=== PATIENT | female | born 1950 | race Two or more races ===

== ENCOUNTER 2023-03-20 20:30 | Emergency (ER) | payer MEDICARE, SELFPAY ==
[2023-03-20 20:44] VITALS: BP 174/68; PULSE 96; RESP 18; TEMP 39.1; O2SAT 98; BMI 26.3
[2023-03-20] MEDS: ACETAMINOPHEN 500 MG TABLET PO (20:58)
[2023-03-20] MEDS: IBUPROFEN 600 MG TABLET PO (20:58)
[2023-03-20 21:18] LABS: Influenza Virus A Antigen Negative; Influenza Virus B Antigen Negative; Internal Control Within Normal Limits; SARS-CoV-2 Ag NEGATIVE (NEGATIVE)
--- NOTE | 2023-03-20 22:18 | XR_ITS ---
[address] [address] Patient Name: DRAKE BLANK MRN: [id number] date: 1950 Sex: F Assigned Patient Location: ER Current Patient Location: ED.MAIN Accession/Order Number: [id number] Exam Date: 03/20/2023 22:30 Report Date: 03/20/2023 22:51 At the request of: ELSY ANSARI Procedure: XR chest 1V EXAMINATION: CHEST RADIOGRAPH (PORTABLE SINGLE VIEW AP) Exam Date/Time: 03/20/2023 10:30 PM EDT Clinical History: SOB Comparison: None available RESULT: Lines, tubes, and devices: None. Lungs and pleura: No focal consolidation. No pneumothorax. No pleural effusion. Cardiomediastinal silhouette: Stable cardiomediastinal silhouette. Other: No acute osseous process. XR/XR chest 1V IMPRESSION: No acute cardiopulmonary abnormality. Electronically authenticated by: JOSE CARTER Date: 03/20/2023 22:51
--- NOTE | 2023-03-20 22:20 | ED.FEVER1 ---
HPI - Fever General Chief Complaint: Fever Stated Complaint: General Weakness and Headache Time Seen by Provider: 03/20/23 20:43 Source: patient Mode of arrival: walk-in History of Present Illness HPI Narrative: This 72-year-old female presents for evaluation of an intermittent fever since last . The patient states she was getting out of the shower last and had an episode of shaking chills. She took some Tylenol at that time and went to bed. She states the fever went away and she felt fine on Saturday and Saturday but then on Saturday she started developing a fever again. She states she has a generalized headache. She has no neck pain or stiffness. She has no skin rash. She has no upper respiratory symptoms but did have a mild sore throat when her symptoms started. She had some mild vomiting and has some mild epigastric discomfort. She has had her gallbladder removed. She denies any abdominal pain or flank pain. She denies any urinary symptoms. She denies any sick contacts or travel outside the country. Related Data Allergies Allergy/AdvReac Type Severity Reaction Status Date / Time No Known Drug Allergies Allergy Verified 03/20/23 20:44 Review of Systems ROS Status of ROS 10 or more systems reviewed and unremarkable except as noted in history and below Exam Narrative Exam Narrative: Nurses note and vital signs reviewed; Patient is febrile with a normal pulse, blood pressure is elevated at 174/68, she is not hypoxic with pulse ox of 98 percent on room air General: Non toxic, well-appearing female resting currently on the stretcher, no respiratory distress, she is alert and conversant Skin: Warm, dry, no pallor noted. There is no rash noted. Head: Normocephalic, atraumatic Eye: Normal conjunctiva, no drainage, EOMI. PERRL Ears, Nose, Mouth, and Throat: oral mucosa is dry, posterior pharynx is mildly erythematous, no exudate noted, No swelling of the tongue, uvula or pharyngeal soft tissues Neck: Supple, no meningeal signs Cardiovascular: Regular Rate and Rhythm S1S2, no murmurs, rubs or gallops appreciated, pulses are brisk and equal bilaterally Respiratory: Patient is in no distress, no accessory muscle use, lungs are clear to auscultation, no wheezing, rales or rhonchi Back: non-tender, no CVA tenderness bilaterally to percussion. GI: Normal bowel sounds, no tenderness to palpation, no masses appreciated. No rebound, guarding, or rigidity noted. Musculoskeletal: The patient has no evidence of calf tenderness, no pitting edema, symmetrical pulses noted bilaterally Neurological: A&O x4, normal speech Psychiatric: Cooperative Constitutional Vital Signs, click to edit/add: Last Vital Signs Temp 98.6 F 03/20/23 23:20 Pulse 96 H 03/20/23 20:44 Resp 18 03/20/23 20:44 BP 174/68 H 03/20/23 20:44 Pulse Ox 98 03/20/23 20:44 O2 Del Method Room Air 03/20/23 20:44 Course Vital Signs Vital signs: Vital Signs Temperature 102.4 F H 03/20/23 20:44 Pulse Rate 96 H 03/20/23 20:44 Respiratory Rate 18 03/20/23 20:44 Blood Pressure 174/68 H 03/20/23 20:44 Pulse Oximetry 98 03/20/23 20:44 Oxygen Delivery Method Room Air 03/20/23 20:44 Temperature 98.6 F 03/20/23 23:20 Pulse Rate 96 H 03/20/23 20:44 Respiratory Rate 18 03/20/23 20:44 Blood Pressure 174/68 H 03/20/23 20:44 Pulse Oximetry 98 03/20/23 20:44 Oxygen Delivery Method Room Air 03/20/23 20:44 MDM - Fever MDM Narrative Medical decision making narrative: This 72-year-old female, presents for evaluation of a fever and chills that started last . It has been waxing and waning but returned today. Upon arrival temperature was 102. She denies any chest pain or shortness of breath. She did have a mild sore throat earlier in the week. Her mucous membranes were dry. Vital signs were otherwise stable. Lungs are clear, abdomen is soft. She did have some vomiting earlier in the week. An IV was placed and she was medicated with Tylenol and ibuprofen as well as Zofran. Her fever has broken. She is feeling better. She did have some degree of headache upon arrival. She has no neck pain or stiffness, no skin rash, no signs concerning for meningitis. She has a mild elevation in her white count at 13.2. Electrolytes are otherwise normal. She is negative for cough at 19 and influenza. Lactic acid is normal. 2 sets of blood cultures are pending at this time. Her urine is positive for moderate leukocyte esterase and 10-20 white blood cells per high-power field. She was given a dose of IV Rocephin emergency department and will be discharged home with a prescription for Cipro to use for the next 7 days. She'll be referred to outpatient family medicine as her family physician recently retired. Lab Data Attestation: I reviewed the patient's lab results. (White count is elevated at 13.2, there is mild elevation of alkaline phosphatase, urine is positive for infection, COVID and influenza are negative. Lactic acid is normal ) Labs: Lab Results 03/20/23 03/20/23 03/20/23 Range/Units 20:52 22:35 22:48 WBC 13.2 H (4.0-11.0) 10^3/uL RBC 4.27 (4.20-5.40) 10^6/uL Hgb 13.2 (12.0-16.0) g/dL Hct 39.6 (36.0-48.0) % MCV 92.7 (81.0-99.0) fL MCH 30.9 (26.7-34.0) pg MCHC 33.3 (29.9-35.2) g/dL RDW 12.6 (11.0-15.0) % Plt Count 387 (150-450) 10^3/uL MPV 9.0 L (9.5-13.5) fL Neut % (Auto) 89.4 H (43.0-75.0) % Lymph % (Auto) 6.1 L (20.5-60.0) % [place] % (Auto) 3.9 (1.7-12.0) % Eos % (Auto) 0.0 L (0.9-7.0) % Baso % (Auto) 0.2 (0.2-2.0) % Neut # (Auto) 11.8 H (1.4-6.5) 10^3/uL Lymph # (Auto) 0.8 L (1.2-3.8) 10^3/uL [place] # (Auto) 0.5 (0.3-0.8) 10^3/uL Eos # (Auto) 0.0 (0.0-0.7) 10^3/uL Baso # (Auto) 0.0 (0.0-0.1) 10^3/uL Abs Immat Gran (auto) 0.05 H (0.00-0.03) 10^3/uL Imm/Tot Granulo (auto) 0.4 (0.0-0.5) % Sodium 138 (136-145) mmol/L Potassium 3.4 L (3.5-5.1) mmol/L Chloride 101 (98-107) mmol/L Carbon Dioxide 27.5 (21.0-32.0) mmol/L Anion Gap 12.9 BUN 8.0 (7.0-18.0) mg/dL Creatinine 0.74 (0.55-1.02) mg/dL Est GFR ( Amer) >60 (>=60) Est GFR (Non-Af Amer) >60 (>=60) BUN/Creatinine Ratio 10.8 Glucose 137 H (74-106) mg/dL Lactate 1.2 (0.4-2.0) mmol/L Calcium 8.6 (8.5-10.1) mg/dL Total Bilirubin 1.0 (0.2-1.0) mg/dL AST 22 (15-37) U/L ALT 42 (14-59) U/L Alkaline Phosphatase 122 H (46-116) U/L Total Protein 8.1 (6.4-8.2) g/dL Albumin 3.5 (3.4-5.0) g/dL Globulin 4.6 g/dL Albumin/Globulin Ratio 0.8 Urine Color Lt. yellow (YELLOW) Urine Clarity Clear (CLEAR) Urine pH 6.5 (5.0-9.0) Ur Specific [place] 1.015 (1.005-1.025) Urine Protein Negative (NEG/TRACE) mg/dL Urine Glucose (UA) Negative (NEGATIVE) mg/dL Urine Ketones 15 A (NEGATIVE) mg/dL Urine Occult Blood Moderate A (NEGATIVE) Urine Nitrite Negative (NEGATIVE) Urine Bilirubin Negative (NEGATIVE) Urine Urobilinogen 0.2 (0.2-1.0) EU/dL Ur Leukocyte Esterase Large A (NEGATIVE) Urine RBC 2-5 A (0-2) #/HPF Urine WBC 10-20 A (NONE SEEN) #/HPF Ur Squamous Epith Cells Few A (NONE/RARE) #/LPF Urine Crystals None seen (None Seen) #/HPF Urine Bacteria Moderate A (NONE SEEN) #/HPF Urine Casts None seen (NONE SEEN) #/LPF Urine Mucus Trace A (NONE SEEN) Ur Oval Fat Bodies Seen Ur Culture Indicated? Yes SARS-CoV-2 (PCR) Negative (NEGATIVE) Influenza Type A Ag Negative Influenza Type B Ag Negative Discharge Plan Discharge Chief Complaint: Fever Clinical Impression: Urinary tract infection Patient Disposition: Home, Self-Care Time of Disposition Decision: 23:51 Condition: Good Instructions: Acute Urinary Retention in Women (ED) Stand Alone Forms: Portal Instructions Referrals: Physician,Non-Staff, MD [Primary Care Provider] - 1 week
[2023-03-20 22:59] LABS: Basophils Percent Auto 0.2 % (0.2-2.0); Hematocrit 39.6 % (36.0-48.0); Hemoglobin 13.2 g/dL (12.0-16.0); Immature Granulocytes Abs Auto 0.05 10^3/uL (0.00-0.03); Immature Granulocytes Pct Auto 0.4 % (0.0-0.5); Lymphocytes Absolute Auto 0.8 10^3/uL (1.2-3.8); Lymphocytes Percent Auto 6.1 % (20.5-60.0); Mean Corpuscular HGB Conc 33.3 g/dL (29.9-35.2); Mean Corpuscular Hemoglobin 30.9 pg (26.7-34.0); Mean Corpuscular Volume 92.7 fL (81.0-99.0); Monocytes Absolute Auto 0.5 10^3/uL (0.3-0.8); Monocytes Percent Auto 3.9 % (1.7-12.0); Neutrophils Absolute Auto 11.8 10^3/uL (1.4-6.5); Neutrophils Percent Auto 89.4 % (43.0-75.0); Platelet Count 387 10^3/uL (150-450); Red Blood Count 4.27 10^6/uL (4.20-5.40); Red Cell Distribution Width 12.6 % (11.0-15.0); White Blood Count 13.2 10^3/uL (4.0-11.0)
[2023-03-20] MEDS: 0.9 % SODIUM CHLORIDE 1,000 ML 1000 ML IV (23:01)
[2023-03-20 23:02] LABS: Bilirubin Urine NEGATIVE (NEGATIVE); Blood Urine MODERATE (NEGATIVE); Clarity Urine CLEAR (CLEAR); Color Urine LT. YELLOW (YELLOW); Glucose Urine UA NEGATIVE (NEGATIVE); Ketones Urine 15 mg/dL (NEGATIVE); Leukocyte Esterase Urine LARGE (NEGATIVE); Nitrite Urine NEGATIVE (NEGATIVE); Protein Urine NEGATIVE (NEG/TRACE); Specific Gravity Urine 1.015 (1.005-1.025); Urobilinogen Urine 0.2 EU/dL (0.2-1.0); pH Urine 6.5 (5.0-9.0)
[2023-03-20] MEDS: ONDANSETRON PF 4 MG/2 ML VIAL IV (23:02)
[2023-03-20] MEDS: ACETAMINOPHEN 325 MG TABLET 650 MG PO (23:02)
[2023-03-20 23:14] LABS: Alanine Aminotransferase 42 U/L (14-59); Albumin Globulin Ratio 0.8; Albumin Level 3.5 g/dL (3.4-5.0); Alkaline Phosphatase 122 U/L (46-116); Anion Gap 12.9; Aspartate Amino Transferase 22 U/L (15-37); BUN Creatinine Ratio 10.8; Calcium 8.6 mg/dL (8.5-10.1); Carbon Dioxide 27.5 mmol/L (21.0-32.0); Chloride 101 mmol/L (98-107); Estimated GFR (African America >60 (>=60); Estimated GFR (Non-African Ame >60 (>=60); Globulin 4.6 g/dL; Glucose 137 mg/dL (74-106); Potassium 3.4 mmol/L (3.5-5.1); Sodium 138 mmol/L (136-145); Total Protein 8.1 g/dL (6.4-8.2)
[2023-03-20 23:17] LABS: Lactate/Lactic Acid 1.2 mmol/L (0.4-2.0)
[2023-03-20 23:18] LABS: Bacteria Urine MODERATE #/HPF (NONE SEEN); Cast Seen? NONE SEEN #/LPF (NONE SEEN); Crystals Seen? None Seen #/HPF (None Seen); Mucus Urine TRACE (NONE SEEN); Squamous Epithelial Cell Urine FEW #/LPF (NONE/RARE)
[2023-03-20 23:19] LABS: Oval Fat Bodies Urine SEEN; Urine Culture Indicated YES
[2023-03-20 23:20] VITALS: TEMP 37
[2023-03-20 23:25] LABS: Adenovirus NOT DETECTED (NOT DETECTE); Bordetella parapertussis NOT DETECTED (NOT DETECTE); Coronavirus 229E NOT DETECTED (NOT DETECTE); Coronavirus HKU1 NOT DETECTED (NOT DETECTE); Coronavirus NL63 NOT DETECTED (NOT DETECTE); Coronavirus OC43 NOT DETECTED (NOT DETECTE); Human Metapneumovirus NOT DETECTED (NOT DETECTE); Human Rhinovirus/Enterovirus NOT DETECTED (NOT DETECTE); Influenza A NOT DETECTED (NOT DETECTE); Influenza B NOT DETECTED (NOT DETECTE); Mycoplasma pneumoniae NOT DETECTED (NOT DETECTE); Parainfluenza Virus 1 NOT DETECTED (NOT DETECTE); Parainfluenza Virus 2 NOT DETECTED (NOT DETECTE); Parainfluenza Virus 3 NOT DETECTED (NOT DETECTE); Parainfluenza Virus 4 NOT DETECTED (NOT DETECTE); Respiratory Syncytial Virus NOT DETECTED (NOT DETECTE); SARS-CoV-2 NOT DETECTED (NOT DETECTE)
[2023-03-21] MEDS: CEFTRIAXONE 1,000 MG in 0.9 % SODIUM CHLORIDE 50 ML 100 MG IV (00:14)
[2023-03-21 00:41] VITALS: BP 129/61; PULSE 75; RESP 18; O2SAT 96
== END 2023-03-21 01:03 | disposition home or self-care (01) ==
PROVIDERS: Emergency Provider Emergency Medicine
DX: N39.0 Urinary tract infection, site not specified (principal); Z90.49 Acquired absence of other specified parts of digestive tract; Z20.822 Contact with and (suspected) exposure to COVID-19
CPT/HCPCS: 0202U; 36415; 71045; 80053; 81001; 83605; 85025; 87040; 87086; 87635; 87804; 87811; 96374; 96375; 99285; U0003

== ENCOUNTER 2023-03-21 14:22 | Emergency (ER) | payer MEDICARE, MEDICAID, SELFPAY ==
[2023-03-21 14:31] VITALS: BP 199/78; PULSE 82; RESP 16; TEMP 36.8; O2SAT 98; BMI 26.4
--- NOTE | 2023-03-21 14:44 | ED.ABDPAIN1 ---
HPI - Abdominal Pain General Chief Complaint: Abdominal Pain Stated Complaint: ABDOMINAL PAIN, BACK PAIN Time Seen by Provider: 03/21/23 14:23 Source: patient Mode of arrival: walk-in Limitations: no limitations History of Present Illness HPI narrative: patient is a 72-year-old female who returns to the emergency department for abdominal pain and low back pain. Patient was seen in this emergency department last night for headache, fever and generally not feeling well. She was diagnosed with urinary tract infection, her Covid test was negative. She states today after taking her antibiotics, she has developed severe pain in the mid abdomen and low back. She has no flank pain. No objective fevers today, she feels nauseous but has not had any vomiting. She has not had a bowel movement today, she does not have any urinary symptoms. She has had a previous cholecystectomy. Related Data Home Medications Medication Instructions Recorded Confirmed ciprofloxacin HCl 500 mg tablet 500 mg PO BID 03/21/23 03/21/23 (Cipro) Previous Rx's Medication Instructions Recorded cephalexin 500 mg capsule 500 mg PO Q8H 7 days #21 caps 03/21/23 ondansetron 4 mg disintegrating 4 mg PO Q6H PRN nausea and 03/21/23 tablet vomiting #12 tabs sucralfate 1 gram tablet (Carafate) 1 g PO Q6H PRN abdominal pain #12 03/21/23 tabs Allergies Allergy/AdvReac Type Severity Reaction Status Date / Time No Known Drug Allergies Allergy Verified 03/21/23 14:30 Review of Systems ROS Constitutional Reports: fever and chills Ears, nose, mouth, and throat Denies: throat pain or nasal congestion Cardiovascular Denies: chest pain Respiratory Denies: shortness of breath or cough Gastrointestinal Reports: abdominal pain and nausea; Denies: vomiting or diarrhea Genitourinary Denies: painful urination Musculoskeletal Reports: back pain Integumentary/Breast Denies: rash Neurological Reports: headache PFSH PFSH Social History Smoking status: Never smoker Exam Narrative Exam Narrative: Gen.: Awake, alert, in no distress Head: Normocephalic, atraumatic ENT: Moist mucous membranes Respiratory: No respiratory distress, lungs clear bilaterally Cardio: Regular rate and rhythm Gastrointestinal: Abdomen is soft, well-healed surgical incision in the mid abdomen, diffusely tender in the epigastrium and umbilical abdomen with no guarding or rebound; low back with no spinal tenderness of the T-spine or L-spine, no CVA tenderness Extremities: Moves extremities equally, no injuries noted Psych: Normal mood and affect Neuro: No focal neuro deficit Skin: Warm, dry, intact Constitutional Vital Signs, click to edit/add: Last Vital Signs Temp 98.3 F 03/21/23 14:31 Pulse 82 03/21/23 14:31 Resp 16 03/21/23 14:31 BP 199/78 H 03/21/23 14:31 Pulse Ox 98 03/21/23 14:31 O2 Del Method Room Air 03/21/23 14:31 Course Vital Signs Vital signs: Vital Signs Temperature 98.3 F 03/21/23 14:31 Pulse Rate 82 03/21/23 14:31 Respiratory Rate 16 03/21/23 14:31 Blood Pressure 199/78 H 03/21/23 14:31 Pulse Oximetry 98 03/21/23 14:31 Oxygen Delivery Method Room Air 03/21/23 14:31 Temperature 98.3 F 03/21/23 14:31 Pulse Rate 82 03/21/23 14:31 Respiratory Rate 16 03/21/23 14:31 Blood Pressure 199/78 H 03/21/23 14:31 Pulse Oximetry 98 03/21/23 14:31 Oxygen Delivery Method Room Air 03/21/23 14:31 MDM - Abdominal Pain MDM Narrative Medical decision making narrative: patient is treated with IV fluids, morphine and Zofran. She had of emesis in the Emergency Room, abdomen is soft and benign and CT shows multiple nonacute findings including cystic areas to the liver which will require outpatient follow-up. Patient was made aware of these areas by attending physician on reevaluation. The remainder of her lab studies are unremarkable and she is discharged home. She requests a change of antibiotics if she does not feel she is tolerating the Cipro, she was given Keflex, Carafate and Zofran for home. Follow-up with PCP and return to the Emergency Room if symptoms change or worsen. Medical Records Attestation: I reviewed the patient's medical records. Lab Data Attestation: I reviewed the patient's lab results. Labs: Lab Results 03/21/23 03/21/23 Range/Units 14:52 14:57 WBC 11.0 (4.0-11.0) 10^3/uL RBC 4.28 (4.20-5.40) 10^6/uL Hgb 13.2 (12.0-16.0) g/dL Hct 40.2 (36.0-48.0) % MCV 93.9 (81.0-99.0) fL MCH 30.8 (26.7-34.0) pg MCHC 32.8 (29.9-35.2) g/dL RDW 12.7 (11.0-15.0) % Plt Count 385 (150-450) 10^3/uL MPV 8.9 L (9.5-13.5) fL Neut % (Auto) 82.6 H (43.0-75.0) % Lymph % (Auto) 11.3 L (20.5-60.0) % [place] % (Auto) 4.6 (1.7-12.0) % Eos % (Auto) 0.4 L (0.9-7.0) % Baso % (Auto) 0.4 (0.2-2.0) % Neut # (Auto) 9.1 H (1.4-6.5) 10^3/uL Lymph # (Auto) 1.2 (1.2-3.8) 10^3/uL [place] # (Auto) 0.5 (0.3-0.8) 10^3/uL Eos # (Auto) 0.0 (0.0-0.7) 10^3/uL Baso # (Auto) 0.0 (0.0-0.1) 10^3/uL Abs Immat Gran (auto) 0.08 H (0.00-0.03) 10^3/uL Imm/Tot Granulo (auto) 0.7 H (0.0-0.5) % Sodium 137 (136-145) mmol/L Potassium 3.1 L (3.5-5.1) mmol/L Chloride 101 (98-107) mmol/L Carbon Dioxide 27.5 (21.0-32.0) mmol/L Anion Gap 11.6 BUN 8.0 (7.0-18.0) mg/dL Creatinine 0.67 (0.55-1.02) mg/dL Est GFR ( Amer) >60 (>=60) Est GFR (Non-Af Amer) >60 (>=60) BUN/Creatinine Ratio 11.9 Glucose 147 H (74-106) mg/dL Lactate 1.5 (0.4-2.0) mmol/L Calcium 8.7 (8.5-10.1) mg/dL Total Bilirubin 0.7 (0.2-1.0) mg/dL AST 31 (15-37) U/L ALT 49 (14-59) U/L Alkaline Phosphatase 122 H (46-116) U/L Troponin I High Sens 23.5 (4.0-51.3) pg/mL Total Protein 8.0 (6.4-8.2) g/dL Albumin 3.3 L (3.4-5.0) g/dL Globulin 4.7 g/dL Albumin/Globulin Ratio 0.7 Lipase 22.0 L (73.0-393.0) U/L Urine Color Lt. yellow (YELLOW) Urine Clarity Clear (CLEAR) Urine pH 7.0 (5.0-9.0) Ur Specific [place] 1.025 (1.005-1.025) Urine Protein Negative (NEG/TRACE) mg/dL Urine Glucose (UA) Negative (NEGATIVE) mg/dL Urine Ketones >=80 A (NEGATIVE) mg/dL Urine Occult Blood Small A (NEGATIVE) Urine Nitrite Negative (NEGATIVE) Urine Bilirubin Negative (NEGATIVE) Urine Urobilinogen 0.2 (0.2-1.0) EU/dL Ur Leukocyte Esterase Large A (NEGATIVE) Imaging Data CT scan - abdomen: Attestation: I have reviewed the pertinent imaging results. Radiologist's impression: Procedure: CT abdomen pelvis wo con EXAM: CT abdomen pelvis wo con; [id number] REASON FOR EXAM: Abdominal pain, back pain TECHNIQUE: Helical CT images of the abdomen and pelvis were obtained without IV contrast. Multiplanar reformats were generated at the scanner. Dose reduction technique used: Automated exposure control and/or adjustment of the mA and/or kV according to patient size and/or use of iterative reconstruction technique. COMPARISON: None. FINDINGS: Note: Compared with a contrast-enhanced CT exam, noncontrast images are relatively insensitive for detection of solid organ and vascular abnormalities. Visualized Chest: Mild left basilar atelectasis. Abdomen: Liver: -Lobulated low-density lesion in liver segment 2/3 measuring 41 x 24 mm. -Small low-density lesion in the caudal and lateral aspect of liver segment 5/6 measuring up to 21 mm. Gallbladder: Resected. Bile Ducts: Mild intrahepatic and moderate extra hepatic biliary ductal dilatation. The CBD measures up to 15 mm. Pancreas: No ductal dilatation or inflammatory changes. Spleen: No splenomegaly. Adrenals: No nodules. Kidneys: -Cystic prominence of the left renal sinus. No significant dilatation of the left ureter or obstructing ureteral stone demonstrated. -There are 2 nonobstructing 2-3 mm stones in the lower pole of the left kidney. -Nonobstructing 3 mm stone in the right kidney. Vascular: No aortic aneurysm. Lymph Nodes: No adenopathy. Abdominal Wall: No hernia or mass. Pelvis: No mass or adenopathy. Bowel/Peritoneal Cavity/Mesentery: -No bowel obstruction or significant ileus. -No acute inflammatory changes. -No free air or free fluid. Musculoskeletal: No acute fracture or suspicious osseous lesion. IMPRESSION: 1. Cystic prominence of the left renal hilum is favored represent renal sinus cysts versus less likely hydronephrosis with transition point at the ureteropelvic junction. This could be confirmed with either CT IVP or more focused delayed phase CT of the abdomen after administration of IV contrast. No obstructing kidney stone. 2. Small bilateral nonobstructing kidney stones are present. 3. There are 2 dominant well-circumscribed cystic lesions in the liver with the largest measuring up to 41 mm. Lobulated contour of the larger lesion can be seen with a routine hepatic cyst, however, a hydatid/ ecchinococcal cyst may have a similar appearance. Recommend nonemergent MRI of the liver with and without contrast. 4. Mild/moderate intrahepatic and extra hepatic biliary ductal dilatation. This finding could be within expected limits given postcholecystectomy in the patient's age, however, correlate with labs to evaluate for biliary obstruction. Electronically authenticated by: GHAZAL MOLINA Date: 03/21/2023 15:50 Discharge Plan Discharge Chief Complaint: Abdominal Pain Clinical Impression: Urinary tract infection, Abdominal pain Patient Disposition: Home, Self-Care Time of Disposition Decision: 16:15 Condition: Good Prescriptions / Home Meds: New cephalexin 500 mg capsule 500 mg PO Q8H 7 Days Qty: 21 0RF sucralfate [Carafate] 1 gram tablet 1 g PO Q6H PRN (Reason: abdominal pain) Qty: 12 0RF ondansetron 4 mg tablet,disintegrating 4 mg PO Q6H PRN (Reason: nausea and vomiting) Qty: 12 0RF No Action ciprofloxacin HCl [Cipro] 500 mg tablet 500 mg PO BID Instructions: Urinary Tract Infection in Women (ED), Abdominal Pain (ED) Stand Alone Forms: Portal Instructions Referrals: Physician,Non-Staff, MD [Primary Care Provider] - 1 week
[2023-03-21] MEDS: 0.9 % SODIUM CHLORIDE 1,000 ML 999 ML IV (14:57)
[2023-03-21] MEDS: ONDANSETRON PF 4 MG/2 ML VIAL IV ×2 (14:59→15:40)
[2023-03-21] MEDS: FAMOTIDINE/PF 20 MG/2 ML VIAL IV (14:59)
[2023-03-21] MEDS: MORPHINE SULFATE 2 MG/ML SYRINGE 4 MG IV (15:04)
[2023-03-21 15:06] LABS: Bilirubin Urine NEGATIVE (NEGATIVE); Blood Urine SMALL (NEGATIVE); Clarity Urine CLEAR (CLEAR); Color Urine LT. YELLOW (YELLOW); Glucose Urine UA NEGATIVE (NEGATIVE); Ketones Urine >=80 mg/dL (NEGATIVE); Leukocyte Esterase Urine LARGE (NEGATIVE); Nitrite Urine NEGATIVE (NEGATIVE); Protein Urine NEGATIVE (NEG/TRACE); Specific Gravity Urine 1.025 (1.005-1.025); Urobilinogen Urine 0.2 EU/dL (0.2-1.0)
[2023-03-21 15:07] LABS: Urine Microscopic Indicated YES
[2023-03-21 15:09] LABS: Basophils Percent Auto 0.4 % (0.2-2.0); Eosinophils Percent Auto 0.4 % (0.9-7.0); Hematocrit 40.2 % (36.0-48.0); Hemoglobin 13.2 g/dL (12.0-16.0); Immature Granulocytes Abs Auto 0.08 10^3/uL (0.00-0.03); Immature Granulocytes Pct Auto 0.7 % (0.0-0.5); Lymphocytes Absolute Auto 1.2 10^3/uL (1.2-3.8); Lymphocytes Percent Auto 11.3 % (20.5-60.0); Mean Corpuscular HGB Conc 32.8 g/dL (29.9-35.2); Mean Corpuscular Hemoglobin 30.8 pg (26.7-34.0); Mean Corpuscular Volume 93.9 fL (81.0-99.0); Mean Platelet Volume 8.9 fL (9.5-13.5); Monocytes Absolute Auto 0.5 10^3/uL (0.3-0.8); Monocytes Percent Auto 4.6 % (1.7-12.0); Neutrophils Absolute Auto 9.1 10^3/uL (1.4-6.5); Neutrophils Percent Auto 82.6 % (43.0-75.0); Platelet Count 385 10^3/uL (150-450); Red Blood Count 4.28 10^6/uL (4.20-5.40); Red Cell Distribution Width 12.7 % (11.0-15.0)
--- NOTE | 2023-03-21 15:19 | CT_ITS ---
[address] [address] Patient Name: DRAKE BLANK MRN: [id number] date: 1950 Sex: F Assigned Patient Location: ER Current Patient Location: Accession/Order Number: [id number] Exam Date: 03/21/2023 15:10 Report Date: 03/21/2023 15:50 At the request of: CADE DEL RIO Procedure: CT abdomen pelvis wo con EXAM: CT abdomen pelvis wo con; [id number] REASON FOR EXAM: Abdominal pain, back pain TECHNIQUE: Helical CT images of the abdomen and pelvis were obtained without IV contrast. Multiplanar reformats were generated at the scanner. Dose reduction technique used: Automated exposure control and/or adjustment of the mA and/or kV according to patient size and/or use of iterative reconstruction technique. COMPARISON: None. FINDINGS: Note: Compared with a contrast-enhanced CT exam, noncontrast images are relatively insensitive for detection of solid organ and vascular abnormalities. Visualized Chest: Mild left basilar atelectasis. Abdomen: Liver: -Lobulated low-density lesion in liver segment 2/3 measuring 41 x 24 mm. -Small low-density lesion in the caudal and lateral aspect of liver segment 5/6 measuring up to 21 mm. Gallbladder: Resected. Bile Ducts: Mild intrahepatic and moderate extra hepatic biliary ductal dilatation. The CBD measures up to 15 mm. Pancreas: No ductal dilatation or inflammatory changes. Spleen: No splenomegaly. Adrenals: No nodules. Kidneys: -Cystic prominence of the left renal sinus. No significant dilatation of the left ureter or obstructing ureteral stone demonstrated. -There are 2 nonobstructing 2-3 mm stones in the lower pole of the left kidney. -Nonobstructing 3 mm stone in the right kidney. Vascular: No aortic aneurysm. Lymph Nodes: No adenopathy. Abdominal Wall: No hernia or mass. Pelvis: No mass or adenopathy. Bowel/Peritoneal Cavity/Mesentery: -No bowel obstruction or significant ileus. -No acute inflammatory changes. -No free air or free fluid. Musculoskeletal: No acute fracture or suspicious osseous lesion. CT/CT abdomen pelvis wo con IMPRESSION: 1. Cystic prominence of the left renal hilum is favored represent renal sinus cysts versus less likely hydronephrosis with transition point at the ureteropelvic junction. This could be confirmed with either CT IVP or more focused delayed phase CT of the abdomen after administration of IV contrast. No obstructing kidney stone. 2. Small bilateral nonobstructing kidney stones are present. 3. There are 2 dominant well-circumscribed cystic lesions in the liver with the largest measuring up to 41 mm. Lobulated contour of the larger lesion can be seen with a routine hepatic cyst, however, a hydatid/ ecchinococcal cyst may have a similar appearance. Recommend nonemergent MRI of the liver with and without contrast. 4. Mild/moderate intrahepatic and extra hepatic biliary ductal dilatation. This finding could be within expected limits given postcholecystectomy in the patient's age, however, correlate with labs to evaluate for biliary obstruction. Electronically authenticated by: GHAZAL MOLINA Date: 03/21/2023 15:50
[2023-03-21 15:38] LABS: Alanine Aminotransferase 49 U/L (14-59); Albumin Globulin Ratio 0.7; Albumin Level 3.3 g/dL (3.4-5.0); Alkaline Phosphatase 122 U/L (46-116); Anion Gap 11.6; Aspartate Amino Transferase 31 U/L (15-37); BUN Creatinine Ratio 11.9; Bilirubin Total 0.7 mg/dL (0.2-1.0); Calcium 8.7 mg/dL (8.5-10.1); Carbon Dioxide 27.5 mmol/L (21.0-32.0); Chloride 101 mmol/L (98-107); Estimated GFR (African America >60 (>=60); Estimated GFR (Non-African Ame >60 (>=60); Globulin 4.7 g/dL; Glucose 147 mg/dL (74-106); Lactate/Lactic Acid 1.5 mmol/L (0.4-2.0); Potassium 3.1 mmol/L (3.5-5.1); Sodium 137 mmol/L (136-145); Troponin I High Sensitivity 23.5 pg/mL (4.0-51.3)
[2023-03-21] MEDS: PROMETHAZINE HCL 25 MG/ML VIAL 12.5 MG IV (16:26)
[2023-03-21 16:40] VITALS: BP 154/93; PULSE 68; RESP 16; TEMP 36.7; O2SAT 98
[2023-03-22 10:02] LABS: Bacteria Urine TRACE #/HPF (NONE SEEN); Mucus Urine NONE SEEN (NONE SEEN); Squamous Epithelial Cell Urine FEW #/LPF (NONE/RARE)
[2023-03-22 10:03] LABS: Urine Culture Indicated YES
== END 2023-03-21 16:43 | disposition home or self-care (01) ==
PROVIDERS: Physician Assistant; Emergency Provider Emergency Medicine
DX: N39.0 Urinary tract infection, site not specified (principal); R10.9 Unspecified abdominal pain; Z90.49 Acquired absence of other specified parts of digestive tract
CPT/HCPCS: 0202U; 36415; 71045; 74176; 80053; 81001; 83605; 83690; 84484; 85025; 87040; 87086; 87635; 87804; 87811; 96374; 96375; 96376; 99284; 99285; U0003